=== PATIENT | male | born 1950 | race Caucasian/White ===

== ENCOUNTER → 2016-10-20 | Day surgery (SDC) | payer BC ==
[2016-09-29 11:15] VITALS: Ht 180.3 cm; Wt 100.0 kg
[~2016-10-20] VITALS: Ht 180.3 cm; Wt 100.0 kg
[~2016-10-20] MED LIST: 500ML BSS 0.3ML EPI 1:1000PF IRRIG ONE; ACETAMINOPHEN 325 MG TAB PO PRN; AMVISC PLUS 0.8ML SYRINGE INT OCU ONE; ASPI81TA28 PO; ATROPINE SULFATE 0.1 MG/ML 5ML SYR IV PRN; AcetaZOLAMIDE 250 MG TAB PO SCH; BETAXOLOL HCL 0.25% OP SUSP PER DROP CHARGE OPL SCH; BRIMONIDINE TART 0.2% OP SOLN PER DROP CHARGE ONE; BSS FLUSH ONE; ENDOCOAT 0.85ML SYRINGE INT OCU ONE; EpHEDrine SULFATE INJ 50 MG/ML AMP IV PRN; EpINEphrine INJ 1MG/ML AMP 1 MG/ML AMP ONE; GLYB5TAB8 PO; LACTATED RINGER'S 1000ML 500 ML IV SCH; LIDOCAINE 4% OP SOLN DROP CHARGE ONE; LIDOCAINE 4% OP SOLN DROP CHARGE OPL SCH; LIDOCAINE HCL 1% MPF 2 ML VIAL ONE; LOSA1TAB PO; LOVA10TA3 PO; METF-384 PO; MIDAZOLAM HCL 1 MG/ML 2ML VIAL ONE; MIX: 4ML BSS 1ML EPI 1:1000 PF INSTIL ONE; MOXIFLOXACIN OPH SOLN PER DROP CHARGE ONE; NIAC50TA9 PO; OCUCOAT 1 ML SOLN IO ONE; OMEG10007 PO; POVIDONE-IODINE OP SOLN 30 ML BTL ONE; PROPARACAINE 0.5% OP SOLN PER DROP CHARGE OPL SCH; SITA50TA3 PO; TOBRAMYCIN/DEXAMETHASONE OPH OINT PER APPLN CHARGE ONE
--- NOTE | 2016-10-20 09:10 | History & Physical Bridge - SC ---
H&P Re-Evaluation Bridge Note: I have examined the patient, reviewed the History & Physical and in the interval since the performance of the History & Physical I have noted the following changes of clinical significance: No changes noted
[2016-10-20] MEDS: PHENYLEPHRINE HCL 2.5% OP SOLN PER DROP CHARGE OPL SCH ×2 (09:23→09:28)
[2016-10-20] MEDS: TROPICAMIDE 1% OP SOLN PER DROP CHARGE OPL SCH ×2 (09:24→09:29)
[2016-10-20] MEDS: MOXIFLOXACIN OPH SOLN PER DROP CHARGE OPL SCH ×2 (09:25→09:34)
[2016-10-20] MEDS: CYCLOPENTOLATE HCL 1% OP SOLN PER DROP CHARGE OPL SCH ×2 (09:25→09:30)
--- NOTE | 2016-10-20 10:27 | Discharge Instructions-SurgCtr ---
Discharge Instructions Date of Service Oct 20, 2016. Visit Reason for Visit: Cataract Left Eye Discharge Discharge Diagnosis / Problem: lens implant left eye Discharge Goals Goal(s): Improve function Activity Recommendations Activity Limitations: resume your previous activity Lifting Limitations: no more than 10 pounds Exercise/Sports Limitations: gradually increase as tolerated May Resume Sexual Activity: when tolerated Shower/Bathe: tomorrow Driving or Machine Use: resume 1 day after discharge Anesthesia . Post Anesthesia Instructions: If you have had General Anesthesia or IV Sedation: * Do not drive today. * Resume driving when surgeon permits. * Do not make important decisions or sign legal documents today. * Call surgeon for: 1. Temperature elevations greater than 101 degrees F. 2. Uncontrollable pain. 3. Excessive bleeding. 4. Persistent nausea and vomiting. 5. Medication intolerance (nausea, vomiting or rash). * For nausea and vomiting use only clear liquids such as: tea, soda, bouillon until nausea subsides, then gradually increase diet as tolerated. * If you have any concerns or questions, call your surgeon's office. If physician is unavailable and it is an emergency, call 911 or go to the nearest emergency room. . Instructions / Follow-Up Instructions / Follow-Up ACTIVITY RECOMMENDATIONS: * Light activities. * Mild irritation and blurred vision are common for the first few days. * You may walk outside, read, watch television. * Redness around the white part of the eye is common. MEDICATIONS: Resume previous medications unless instructed otherwise by your surgeon. * Take white Diamox (Acetazolamide) tablet at 1 pm today. Start all eye drops at 1 pm today: * Eye drops (today and tomorrow): Prednisone - one drop in operative eye every 3 hours while awake Ofloxacin - one drop in operative eye every 3 hours while awake SPECIAL CARE INSTRUCTIONS: * Tape plastic shield over eye to sleep at night. Call your doctor at with any concerns or problems. FOLLOW UP VISIT: Follow-up with Dr Stringer at [place] office as scheduled. Diet Recommendations Home Diet: no limitations Procedures Procedures Performed: cataract extraction with lens implant Pending Studies Studies pending at discharge: no Medical Emergencies . Who to Call and When: Medical Emergencies: If at any time you feel your situation is an emergency, please call 911 immediately. . Non-Emergent Contact Non-Emergency issues call your: Supervisor [employer] Call Non-Emergent contact if: your pain is not controlled [phone] . . "Provider Documentation" section prepared by Pablo Stringer. .
--- NOTE | 2016-10-20 10:30 | [facility] Operative Report ---
Operative Report Date of Service Oct 20, 2016. Operative Report 1. PREOPERATIVE DIAGNOSIS: Pre Senile nuclear cataract, left eye. 2. POSTOPERATIVE DIAGNOSIS: Pre Senile nuclear cataract, left eye. 3. PROCEDURE: Phacoemulsification of left cataract with posterior chamber lens implant, type Bausch [employer] Lomb, model MI60L, power +11.50 diopters. ANESTHESIA: Local standby. SURGEON: Dr. Stringer. COMPLICATIONS: None. OPERATING TIME: 10 minutes. 4. OPERATION AND FINDINGS: DESCRIPTION OF PROCEDURE: The left pupil was dilated. The anesthetic was administered using a topical technique. The left eye was prepped and draped. A speculum was placed. A clear corneal incision was formed. The chamber was filled with Amvisc Plus and Endocoat. Epinephrine solution was used. A paracentesis was placed. A capsulorrhexis was performed. The nucleus was hydrodissected. The lens was removed with phacoemulsification. Time was 4.17 seconds. The aspiration unit was used to remove the cortex. The capsule was filled with Amvisc Plus. The lens implant was folded and placed into the capsule. The incisions were hydrated. A astigmatic incision was placed directly across from the primary incision located at the limbus. The Amvisc was aspirated. The wounds were secure. The chamber was deep. The pupil was round. Brimonidine, TobraDex ointment and Vigamox solution were placed. The speculum was removed. The patient was returned to the Recovery Room in stable condition. I attest to the content of the Intraoperative Record and any orders documented therein. Any exceptions are noted below. The scribe's documentation has been prepared in my presence, under my direction and personally reviewed by me in its entirety. I confirm that the note above accurately reflects all work, treatment, procedures, and medical decision making performed by me. I personally scribed for Pablo Stringer M.D. (RADHA) on 10/20/16 at 10:30. Electronically submitted by Savannah Javed ([email or web address]).
[2016-10-20 10:31] VITALS: TEMP 36.2
--- NOTE | 2016-10-20 10:38 | Anesthesia Progress Nt - [facility] ---
Anesthesia Post Op Note Date & Time Oct 20, 2016 at 10:38 Vital Signs Pain Intensity: 0 Vital Signs Past 12 Hours Date Time Temp Pulse Resp B/P (MAP) Pulse Ox O2 Delivery O2 Flow Rate FiO2 10/20/16 10:31 36.2 65 18 150/84 (106) 98 Room Air 10/20/16 09:06 36.5 70 16 132/82 (99) 97 Room Air Notes Mental Status: alert / awake / arousable, participated in evaluation Pt Amnestic to Procedure: Yes Nausea / Vomiting: adequately controlled Pain: adequately controlled Airway Patency, RR, SpO2: stable & adequate BP & HR: stable & adequate Hydration State: stable & adequate Anesthetic Complications: no major complications apparent
[2016-10-20 10:55] VITALS: BP 152/83; PULSE 62; O2SAT 98
== END | disposition home or self-care (01) ==
LOC: X.SURG 08:49
PROVIDERS: ATTEND Specialist
DX: H25.12 Age-related nuclear cataract, left eye (principal); Z79.84 Long term (current) use of oral hypoglycemic drugs; Z79.82 Long term (current) use of aspirin; E11.9 Type 2 diabetes mellitus without complications; K44.9 Diaphragmatic hernia without obstruction or gangrene; E66.9 Obesity, unspecified; Z90.89 Acquired absence of other organs; I10 Essential (primary) hypertension; E78.5 Hyperlipidemia, unspecified; K21.9 Gastro-esophageal reflux disease without esophagitis

== ENCOUNTER → 2016-10-27 | Day surgery (SDC) | payer BC ==
[2016-10-25 09:53] VITALS: Ht 180.3 cm; Wt 100.0 kg
[~2016-10-27] VITALS: Ht 180.3 cm; Wt 100.0 kg
[~2016-10-27] MED LIST changes: +AcetaZOLAMIDE 250 MG TAB ONE; -AcetaZOLAMIDE 250 MG TAB PO SCH; -BETAXOLOL HCL 0.25% OP SUSP PER DROP CHARGE OPL SCH; +BETAXOLOL HCL 0.25% OP SUSP PER DROP CHARGE OPR SCH; -LIDOCAINE 4% OP SOLN DROP CHARGE OPL SCH; +LIDOCAINE 4% OP SOLN DROP CHARGE OPR SCH; -PROPARACAINE 0.5% OP SOLN PER DROP CHARGE OPL SCH; +PROPARACAINE 0.5% OP SOLN PER DROP CHARGE OPR SCH
[2016-10-27] MEDS: PHENYLEPHRINE HCL 2.5% OP SOLN PER DROP CHARGE OPR SCH ×2 (06:45→06:50)
[2016-10-27] MEDS: TROPICAMIDE 1% OP SOLN PER DROP CHARGE OPR SCH ×2 (06:46→06:51)
[2016-10-27] MEDS: CYCLOPENTOLATE HCL 1% OP SOLN PER DROP CHARGE OPR SCH ×2 (06:47→06:52)
[2016-10-27] MEDS: MOXIFLOXACIN OPH SOLN PER DROP CHARGE OPR SCH ×2 (06:48→07:00)
--- NOTE | 2016-10-27 07:32 | Discharge Instructions-SurgCtr ---
Discharge Instructions Date of Service Oct 27, 2016. Visit Reason for Visit: Cataract Right Eye Discharge Discharge Diagnosis / Problem: lens implant right eye Discharge Goals Goal(s): Improve function Medications Stopped Medications Name(s): Metformin, last dose 10/25/16 am Activity Recommendations Activity Limitations: resume your previous activity Lifting Limitations: no more than 10 pounds Exercise/Sports Limitations: gradually increase as tolerated May Resume Sexual Activity: when tolerated Shower/Bathe: tomorrow Driving or Machine Use: resume 1 day after discharge Anesthesia . Post Anesthesia Instructions: If you have had General Anesthesia or IV Sedation: * Do not drive today. * Resume driving when surgeon permits. * Do not make important decisions or sign legal documents today. * Call surgeon for: 1. Temperature elevations greater than 101 degrees F. 2. Uncontrollable pain. 3. Excessive bleeding. 4. Persistent nausea and vomiting. 5. Medication intolerance (nausea, vomiting or rash). * For nausea and vomiting use only clear liquids such as: tea, soda, bouillon until nausea subsides, then gradually increase diet as tolerated. * If you have any concerns or questions, call your surgeon's office. If physician is unavailable and it is an emergency, call 911 or go to the nearest emergency room. . Instructions / Follow-Up Instructions / Follow-Up ACTIVITY RECOMMENDATIONS: * Light activities. * Mild irritation and blurred vision are common for the first few days. * You may walk outside, read, watch television. * Redness around the white part of the eye is common. MEDICATIONS: Resume previous medications unless instructed otherwise by your surgeon. * Take white Diamox (Acetazolamide) tablet at 1 pm today. Start all eye drops at 1 pm today: * Eye drops (today and tomorrow): Prednisone - one drop in operative eye every 3 hours while awake Ofloxacin - one drop in operative eye every 3 hours while awake SPECIAL CARE INSTRUCTIONS: * Tape plastic shield over eye to sleep at night. Call your doctor at with any concerns or problems. FOLLOW UP VISIT: Follow-up with Dr Stringer at [place] office as scheduled. Diet Recommendations Home Diet: no limitations Procedures Procedures Performed: cataract extraction with lens implant Pending Studies Studies pending at discharge: no Medical Emergencies . Who to Call and When: Medical Emergencies: If at any time you feel your situation is an emergency, please call 911 immediately. . Non-Emergent Contact Non-Emergency issues call your: Business Asst Call Non-Emergent contact if: your pain is not controlled [phone] . . "Provider Documentation" section prepared by Pablo Stringer. .
--- NOTE | 2016-10-27 07:35 | [facility] Operative Report ---
Operative Report Date of Service Oct 27, 2016. Operative Report 1. PREOPERATIVE DIAGNOSIS: Pre Senile nuclear cataract, right eye. 2. POSTOPERATIVE DIAGNOSIS: Pre Senile nuclear cataract, right eye. 3. PROCEDURE: Phacoemulsification of right cataract with posterior chamber lens implant, type Bausch [employer] Lomb, model MI60L, power +11.50 diopters. ANESTHESIA: Local standby. SURGEON: Dr. Stringer. COMPLICATIONS: None. OPERATING TIME: 10 minutes. 4. OPERATION AND FINDINGS: DESCRIPTION OF PROCEDURE: The right pupil was dilated. The anesthetic was administered using a topical technique. The right eye was prepped and draped. A speculum was placed. A clear corneal incision was formed. The chamber was filled with Amvisc Plus and Endocoat. Epinephrine solution was used. A paracentesis was placed. A capsulorrhexis was performed. The nucleus was hydrodissected. The lens was removed with phacoemulsification. Time was 2.33 seconds. The aspiration unit was used to remove the cortex. The capsule was filled with Amvisc Plus. The lens implant was folded and placed into the capsule. A second astigmatic incision was placed directly across from the main incisions. The incisions were hydrated. The Amvisc was aspirated. The wounds were secure. The chamber was deep. The pupil was round. Brimonidine, TobraDex ointment and Vigamox solution were placed. The speculum was removed. The patient was returned to the Recovery Room in stable condition. I attest to the content of the Intraoperative Record and any orders documented therein. Any exceptions are noted below. The scribe's documentation has been prepared in my presence, under my direction and personally reviewed by me in its entirety. I confirm that the note above accurately reflects all work, treatment, procedures, and medical decision making performed by me. I personally scribed for Pablo Stringer M.D. (RADHA) on 10/27/16 at 07:35. Electronically submitted by Savannah MERCADO).
[2016-10-27 07:40] VITALS: TEMP 36.5
[2016-10-27 08:14] VITALS: BP 118/74; PULSE 65; O2SAT 99
--- NOTE | 2016-10-27 08:25 | Anesthesia Progress Nt - [facility] ---
Anesthesia Post Op Note Date & Time Oct 27, 2016 at 08:24 Vital Signs Pain Intensity: 0 Vital Signs Past 12 Hours Date Time Temp Pulse Resp B/P (MAP) Pulse Ox O2 Delivery O2 Flow Rate FiO2 10/27/16 08:14 65 16 118/74 (89) 99 Room Air 10/27/16 07:40 36.5 59 14 131/74 (93) 95 Room Air 10/27/16 06:35 36.5 73 16 121/77 (92) 99 Room Air Notes Mental Status: alert / awake / arousable, participated in evaluation Pt Amnestic to Procedure: Yes Nausea / Vomiting: adequately controlled Pain: adequately controlled Airway Patency, RR, SpO2: stable & adequate BP & HR: stable & adequate Hydration State: stable & adequate Anesthetic Complications: no major complications apparent
== END | disposition home or self-care (01) ==
LOC: X.SURG 06:13
PROVIDERS: ATTEND Specialist
DX: H26.8 Other specified cataract (principal); I10 Essential (primary) hypertension

== ENCOUNTER 2017-07-02 11:10 | Emergency (ER) | payer BC ==
[~2017-07-02] VITALS: Ht 180.3 cm; Wt 107.0 kg
[~2017-07-02 11:10] MED LIST changes: -500ML BSS 0.3ML EPI 1:1000PF IRRIG ONE; -ACETAMINOPHEN 325 MG TAB PO PRN; -AMVISC PLUS 0.8ML SYRINGE INT OCU ONE; -ATROPINE SULFATE 0.1 MG/ML 5ML SYR IV PRN; -AcetaZOLAMIDE 250 MG TAB ONE; -BETAXOLOL HCL 0.25% OP SUSP PER DROP CHARGE OPR SCH; -BRIMONIDINE TART 0.2% OP SOLN PER DROP CHARGE ONE; -BSS FLUSH ONE; -ENDOCOAT 0.85ML SYRINGE INT OCU ONE; -EpHEDrine SULFATE INJ 50 MG/ML AMP IV PRN; -EpINEphrine INJ 1MG/ML AMP 1 MG/ML AMP ONE; -LACTATED RINGER'S 1000ML 500 ML IV SCH; -LIDOCAINE 4% OP SOLN DROP CHARGE ONE; -LIDOCAINE 4% OP SOLN DROP CHARGE OPR SCH; -LIDOCAINE HCL 1% MPF 2 ML VIAL ONE; -MIDAZOLAM HCL 1 MG/ML 2ML VIAL ONE; -MIX: 4ML BSS 1ML EPI 1:1000 PF INSTIL ONE; -MOXIFLOXACIN OPH SOLN PER DROP CHARGE ONE; -OCUCOAT 1 ML SOLN IO ONE; -POVIDONE-IODINE OP SOLN 30 ML BTL ONE; -PROPARACAINE 0.5% OP SOLN PER DROP CHARGE OPR SCH; -TOBRAMYCIN/DEXAMETHASONE OPH OINT PER APPLN CHARGE ONE
[2017-07-02 11:16] VITALS: TEMP 36.5; Ht 180.3 cm; Wt 107.0 kg
--- NOTE | 2017-07-02 11:43 | EMERGENCY ROOM VISIT NOTE ---
History Report prepared by Coco: Boubacar Brewster Under the Supervision of: Dr. Anatoliy Jj M.D. First contact with patient: 11:27 Chief Complaint: OTHER COMPLAINT Stated Complaint: SWELLING AND PAIN IN JAW,LUMP ON RT ARM,ANKLE PAIN History of Present Illness The patient is a 66 year old male who presents to the Emergency Room with complaints of intermittent jaw pain beginning several weeks ago. The patient notes the he discussed his jaw symptoms with his dentist several weeks ago. He states that he was treated for his jaw pain and swelling for 1 week which alleviated his symptoms. The patient also notes a sore, red lump on his right upper extremity as well as a sore and swollen right ankle which developed 48 hours ago. The patient denies having experienced any trauma which may have injured his ankle. He notes that he has experienced similar ankle swelling past for which he received physical therapy which was effective in treating his symptoms. The patient denies taking any new medications, any history of blood clots, or experiencing any fevers or chills. Source of History: patient Onset: several weeks ago Position: jaw, arm (right), ankle (right) Timing: intermittent Note: Associated Symptoms: Sore red lump on right upper extremity, sore and swollen right ankle, Denies: Taking any new medications, history of blood clots, experiencing any trauma, or experiencing any fevers or chills. Review of Systems See HPI for pertinent positives & negatives. A total of 10 systems reviewed and were otherwise negative. Past Medical & Surgical No history of previous DVT. Family History Patient reports no known family medical history. Social History Smoking Status: Never Smoker Marital Status: Occupation Status: employed Current/Historical Medications Scheduled Amoxicillin & Pot Clavulanate (Augmentin 875-125 mg), 875 MG PO BID Aspirin (Aspirin Ec), 81 MG PO QAM Fish Oil ([place]-3), 1 CAP PO QPM Glyburide (Micronase), 5 MG PO QAM Glyburide (Micronase), 2 TAB PO QPM Losartan Potassium (Cozaar), 25 MG PO QPM Lovastatin (Mevacor), Unknown Dose PO QPM Metformin Hcl (Glucophage), 1,000 MG PO BID Niacin (Niacin), 50 MG PO QPM Sitagliptin (Januvia), Unknown Dose PO QAM Allergies Coded Allergies: Codeine (Verified Adverse Reaction, Mild, NAUSEA/VOMITING, 07/02/17) Physical Exam Vital Signs Date Time Temp Pulse Resp B/P (MAP) Pulse Ox O2 Delivery O2 Flow Rate FiO2 07/02/17 13:43 64 16 152/89 98 07/02/17 12:35 60 18 135/81 96 Room Air 07/02/17 11:16 36.5 75 16 144/84 96 Room Air Physical Exam GENERAL: Patient is in no acute distress. HEENT: No acute trauma, normocephalic atraumatic, mucous membranes moist, no nasal congestion, no scleral icterus. NECK: No stridor, no adenopathy, no meningismus, trachea is midline. LUNGS: Clear to auscultation bilaterally, no wheeze, no rhonchi, breath sounds equal. HEART: Without murmurs gallops or rubs, regular rate and rhythm. ABDOMEN: Soft, nontender, bowel sounds positive, no hernias, no peritonitis. EXTREMITIES: Swelling to right ankle without erythema. Achillis is intact, no focal area of discomfort. Neurovascular intact distally in right lower extremity. 4cm area of erythema and warmth with swelling to posterior medial forearm. No drainage. Area is mildly tender to palpation. NEUROLOGIC: Oriented x 3, no acute motor or sensory deficits, no focal weakness. SKIN: No rash, no jaundice, no diaphoresis. Medical Decision & Procedures ER Provider Diagnostic Interpretation: Radiology results as stated below per my review and radiologist interpretation: R VENOUS DOPP LOWER EXT UNILAT CLINICAL HISTORY: 66 years-old Male presenting with swelling, pain, travel. TECHNIQUE: Real-time grayscale and color and spectral Doppler ultrasound imaging of the veins of the right lower extremity was performed. Compression and augmentation were also utilized. COMPARISON: None. FINDINGS: Right: Common femoral vein: Patent. Greater saphenous vein: Patent. Deep femoral vein: Patent. Femoral vein: Patent. Popliteal vein: Patent. Calf veins: Patent. Other: The long dated thick-walled collection in the popliteal fossa measuring 5.5 x 2.3 x 1.4 cm without evidence of hyperemia on color Doppler. No internal vascularity. IMPRESSION: 1. No evidence of deep venous thrombosis. 2. Suspected right popliteal cyst. Electronically signed by: Osmany Peters M.D. 07/02/2017 1:28 PM Dictated Date/Time: 07/02/2017 1:27 PM [~ rep ct add3]] R ANKLE MIN 3 VIEWS ROUTINE CLINICAL HISTORY: 66 years-old Male presenting with swelling, pain. TECHNIQUE: Frontal, mortise, and lateral views of the right ankle were obtained. COMPARISON: None. FINDINGS: No acute fracture or malalignment. Degenerative changes at the medial malleolus. Prominent enthesophyte at the insertion of the Achilles tendon. Degenerative changes at the talonavicular articulation. Diffuse soft tissue swelling the ankle. Atherosclerosis. IMPRESSION: 1. No acute osseous injury. 2. Nonspecific diffuse soft tissue swelling. 3. Degenerative changes at the hindfoot-midfoot articulation. Electronically signed by: Osmany Peters M.D. 07/02/2017 12:08 PM Dictated Date/Time: 07/02/2017 12:06 PM Laboratory Results 07/02/17 11:55 Red Blood Count 4.24, Mean Corpuscular Volume 88.4, Mean Corpuscular Hemoglobin 31.1, Mean Corpuscular Hemoglobin Concent 35.2, Mean Platelet Volume 9.6, Neutrophils (%) (Auto) 71.5, Lymphocytes (%) (Auto) 17.6, Monocytes (%) (Auto) 9.0, Eosinophils (%) (Auto) 0.9, Basophils (%) (Auto) 0.8, Neutrophils # (Auto) 7.34, Lymphocytes # (Auto) 1.80, Monocytes # (Auto) 0.92, Eosinophils # (Auto) 0.09, Basophils # (Auto) 0.08 07/02/17 11:55 Test 07/02/17 11:55 White Blood Count 10.25 K/uL (4.8-10.8) Red Blood Count 4.24 M/uL (4.7-6.1) Hemoglobin 13.2 g/dL (14.0-18.0) Hematocrit 37.5 % (42-52) Mean Corpuscular Volume 88.4 fL (80-100) Mean Corpuscular Hemoglobin 31.1 pg (25-34) Mean Corpuscular Hemoglobin Concent 35.2 g/dl (32-36) Platelet Count 263 K/uL (130-400) Mean Platelet Volume 9.6 fL (7.4-10.4) Neutrophils (%) (Auto) 71.5 % Lymphocytes (%) (Auto) 17.6 % Monocytes (%) (Auto) 9.0 % Eosinophils (%) (Auto) 0.9 % Basophils (%) (Auto) 0.8 % Neutrophils # (Auto) 7.34 K/uL (1.4-6.5) Lymphocytes # (Auto) 1.80 K/uL (1.2-3.4) Monocytes # (Auto) 0.92 K/uL (0.11-0.59) Eosinophils # (Auto) 0.09 K/uL (0-0.5) Basophils # (Auto) 0.08 K/uL (0-0.2) RDW Standard Deviation 40.9 fL (36.4-46.3) RDW Coefficient of Variation 12.7 % (11.5-14.5) Immature Granulocyte % (Auto) 0.2 % Immature Granulocyte # (Auto) 0.02 K/uL (0.00-0.02) Anion Gap 9.0 mmol/L (3-11) Est Creatinine Clear Calc Drug Dose 74.3 ml/min Estimated GFR () 70.1 Estimated GFR (Non- 60.5 BUN/Creatinine Ratio 15.1 (10-20) Calcium Level 8.8 mg/dl (8.5-10.1) Total Bilirubin 0.5 mg/dl (0.2-1) Aspartate Amino Transf (AST/SGOT) 17 U/L (15-37) Alanine Aminotransferase (ALT/SGPT) 38 U/L (12-78) Alkaline Phosphatase 73 U/L (45-117) Total Protein 7.8 gm/dl (6.4-8.2) Albumin 3.7 gm/dl (3.4-5.0) Globulin 4.1 gm/dl (2.5-4.0) Albumin/Globulin Ratio 0.9 (0.9-2) Thyroid Stimulating Hormone (TSH) 1.360 uIu/ml (0.300-4.500) Laboratory results reviewed by me. Medications Administered Medications (Trade) Dose Ordered Sig/Jordon Route Start Time Stop Time Status Last Admin Dose Admin Amoxicillin/ Clavulanate Potassium (Augmentin Tab) 875 mg ONE ONCE PO 07/02/17 11:45 07/02/17 11:46 DC 07/02/17 11:49 875 MG ED Course 1128: The patient was evaluated in room C12. A complete history and physical exam was performed. 1145: Ordered Augmentin Tab 875mg PO. 1345: Reevaluated the patient. Discussed results and discharge instructions: He verbalized understanding and agreement. The patient is ready for discharge. Medical Decision The patient is a 66 year old male who presents to the ED with complaints of jaw pain, right arm redness and ankle pain/swelling. Differential diagnoses considered include cellulitis, abscess, renal failure, electrolyte imbalance, DVT, arthritis, claudia insufficiency, or sprain. There is no leukocytosis or concerning anemia. No significant electrolyte abnormality, kidney failure or hepatitis. Right ankle film does not show evidence for fracture or dislocation. Right leg ultrasound does not show DVT, there was some evidence to suggest a right popliteal cyst. The patient appeared to be in a euthyroid state. On exam, the patient was not febrile or toxic. The patient's right jaw pain and swelling has resolved. This is not really an issue today. The right arm redness appears to be a localized cellulitis. The right ankle swelling may be from the popliteal cyst. He has had issues with right ankle swelling before. The patient was reassured that he did not have a blood clot. He was given a dose of oral Augmentin for the right arm cellulitis and this will be continued for 10 days. Patient was encouraged to return if worsening and to follow with his doctor's office. Medication Reconcilliation Current Medication List: was personally reviewed by me Blood Pressure Screening Patient's blood pressure: Elevated blood pressure Blood pressure disposition: Referred to PCP Impression Primary Impression: Right leg swelling Additional Impression: Right arm cellulitis Scribe Attestation The scribe's documentation has been prepared under my direction and personally reviewed by me in its entirety. I confirm that the note above accurately reflects all work, treatment, procedures, and medical decision making performed by me. Departure Information Dispostion Home / Self-Care Prescriptions Amoxicillin & Pot Clavulanate (Augmentin 875-125 mg) 1 Tab Tab 875 MG PO BID for 10 Days, #20 TAB Prov: Anatoliy Jj M.D. 07/02/17 Referrals Brian Odonnell D.O. (PCP) Forms HOME CARE DOCUMENTATION FORM, IMPORTANT VISIT INFORMATION, WORK / SCHOOL INSTRUCTIONS Patient Instructions My [facility] Additional Instructions try to keep the leg elevated stay off of your feel if you can ice for swelling may use motrin or advil for pain augmentin 2x per day for 10 days follow with [facility] this week for a recheck return if worsening no clot by ultrasound today--a bakers cyst was noted at the [facility] Problem Qualifiers
[2017-07-02] MEDS ORDERED: AMOXICILLIN/CLAVULANATE TAB 875 MG TAB PO ONE (11:45)
[2017-07-02 12:06] LABS: BASO % 0.8 %; BASO ABS # 0.08 K/uL (0-0.2); EOS % 0.9 %; EOS ABS # 0.09 K/uL (0-0.5); HEMATOCRIT 37.5 % (42-52); HEMOGLOBIN 13.2 g/dL (14.0-18.0); IG# 0.02 K/uL (0.00-0.02); LYMPH % 17.6 %; MEAN CELL VOLUME 88.4 fL (80-100); MEAN CORPUSCULAR HEMOGLOBIN 31.1 pg (25-34); MEAN CORPUSCULAR HGB CONC 35.2 g/dl (32-36); MEAN PLATELET VOLUME 9.6 fL (7.4-10.4); MONO ABS # 0.92 K/uL (0.11-0.59); NEUT % 71.5 %; NEUT ABS # 7.34 K/uL (1.4-6.5); PLATELET COUNT 263 K/uL (130-400); RED CELL DISTRIBUTION WIDTH CV 12.7 % (11.5-14.5); RED CELL DISTRIBUTION WIDTH SD 40.9 fL (36.4-46.3); WHITE BLOOD COUNT 10.25 K/uL (4.8-10.8)
--- NOTE | 2017-07-02 12:09 | DIAGNOSTIC IMAGING REPORT ---
R ANKLE MIN 3 VIEWS ROUTINE CLINICAL HISTORY: 66 years-old Male presenting with swelling, pain. TECHNIQUE: Frontal, mortise, and lateral views of the right ankle were obtained. COMPARISON: None. FINDINGS: No acute fracture or malalignment. Degenerative changes at the medial malleolus. Prominent enthesophyte at the insertion of the Achilles tendon. Degenerative changes at the talonavicular articulation. Diffuse soft tissue swelling the ankle. Atherosclerosis. IMPRESSION: 1. No acute osseous injury. 2. Nonspecific diffuse soft tissue swelling. 3. Degenerative changes at the hindfoot-midfoot articulation. Electronically signed by: Osmany Peters M.D. 07/02/2017 12:08 PM Dictated Date/Time: 07/02/2017 12:06 PM
[2017-07-02 12:21] LABS: ALBUMIN 3.7 gm/dl (3.4-5.0); CALCIUM 8.8 mg/dl (8.5-10.1); CREATININE 1.25 mg/dl (0.60-1.40); POTASSIUM 4.1 mmol/L (3.5-5.1)
[2017-07-02 12:32] LABS: TOTAL PROTEIN 7.8 gm/dl (6.4-8.2)
--- NOTE | 2017-07-02 13:29 | DIAGNOSTIC IMAGING REPORT ---
R VENOUS DOPP LOWER EXT UNILAT CLINICAL HISTORY: 66 years-old Male presenting with swelling, pain, travel. TECHNIQUE: Real-time grayscale and color and spectral Doppler ultrasound imaging of the veins of the right lower extremity was performed. Compression and augmentation were also utilized. COMPARISON: None. FINDINGS: Right: Common femoral vein: Patent. Greater saphenous vein: Patent. Deep femoral vein: Patent. Femoral vein: Patent. Popliteal vein: Patent. Calf veins: Patent. Other: The long dated thick-walled collection in the popliteal fossa measuring 5.5 x 2.3 x 1.4 cm without evidence of hyperemia on color Doppler. No internal vascularity. IMPRESSION: 1. No evidence of deep venous thrombosis. 2. Suspected right popliteal cyst. Electronically signed by: Osmany Peters M.D. 07/02/2017 1:28 PM Dictated Date/Time: 07/02/2017 1:27 PM
[2017-07-02] MEDS ORDERED: AMOX875T PO (13:33)
[2017-07-02 13:43] VITALS: BP 152/89; PULSE 64; O2SAT 98
== END 2017-07-02 13:43 | disposition home or self-care (01) ==
LOC: C.EDB 11:14 → C.EDC 13:43
DX: M79.89 Other specified soft tissue disorders (principal); L03.113 Cellulitis of right upper limb; Z79.82 Long term (current) use of aspirin; Z79.899 Other long term (current) drug therapy